=== PATIENT | female | born 1965 | race Caucasian/White ===

== ENCOUNTER 2018-08-04 07:12 | Emergency (ER) | payer OTHER ==
[2018-08-04 08:22] VITALS: TEMP 99.6
--- NOTE | 2018-08-04 08:26 | ED.PDOC ---
History of Present Illness - General Chief Complaint: Problem Stated Complaint: Pt complains of UTI like symptoms Time Seen by Provider: 08/04/18 07:58 Source: patient Exam Limitations: no limitations - History of Present Illness Initial Comments: Patient presents with dysuria since last night. She also has had frequency. She says she feels pain over her bladder that radiates to her right back. The bladder pain and dysuria are typical for her when she has a UTI but the back pain does not happen every time. It is sharp in nature and constant. No exacerbating nor alleviating factors. She has had a URI that she describes as "head congestion" for about 5 days. This has included a cough that is occasionally productive of yellow sputum. No other complaints. Timing/Duration: other - 12 hours Severity: moderate Improving Factors: nothing Worsening Factors: nothing Associated Symptoms: other - as in HPI Allergies/Adverse Reactions: Allergies NO KNOWN ALLERGY Allergy (Verified 08/04/18 07:42) Home Medications: Ambulatory Orders Desogestrel-Ethinyl Estradiol [Azurette] 1 tab PO DAILY 02/23/14 Iron [Mykidz Iron 10] 15 mg PO MALA-OTH-DAY 02/23/14 Multiple Vitamins W/ Minerals [Multi Vitamin/Minerals Fu] 1 tab PO DAILY 02/23/14 [place]-3 Fatty Acids [Fish Oil] 1,000 mg PO DAILY 02/23/14 Calcium Carbonate-Vitamin D [Calcium 500+D] 1 tab PO DAILY 02/01/16 Ciprofloxacin [Cipro] 500 mg PO BID #14 tab 08/04/18 Fluconazole [Diflucan Tab] 150 mg PO WKLY #2 tab 08/04/18 Review of Systems - Review of Systems Constitutional: States: no symptoms reported EENTM: States: see HPI Respiratory: States: see HPI Cardiology: States: no symptoms reported Gastrointestinal/Abdominal: States: no symptoms reported Genitourinary: States: see HPI Musculoskeletal: States: no symptoms reported Skin: States: no symptoms reported Neurological: States: no symptoms reported Endocrine: States: no symptoms reported Hematologic/Lymphatic: States: no symptoms reported Past Medical History (General) - Patient Medical History Hx Stroke: No Hx of COPD: No Hx Congestive Heart Failure: No Hx Diabetes: No Surgical History: tonsillectomy - Vaccination History Hx Tetanus, Diphtheria Vaccination: No Hx Influenza Vaccination: No Hx Pneumococcal Vaccination: No Immunizations Up to Date: Yes - Social History Hx Tobacco Use: No Hx Alcohol Use: No Hx Substance Use: No Hx Depression: No - Female History Patient is a Female of Child Bearing Age (10 -59 yrs old): Yes Family Medical History - Family History Father Family History: Unknown Living Status: Unknown Hx Cardiac Disease: Yes Hx Family Diabetes: Yes Physical Exam - Physical Exam General Appearance: Alert Eye Exam: bilateral normal Ears, Nose, Throat: normal ENT inspection Neck: non-tender, full range of motion, supple Respiratory: lungs clear, normal breath sounds Cardiovascular/Chest: normal peripheral pulses, regular rate, rhythm Gastrointestinal/Abdominal: normal bowel sounds, non tender, soft Back Exam: normal inspection, no CVA tenderness Skin Exam: normal color Lymphatic: no adenopathy Progress - Progress Progress: 08/04/18 08:40 Laboratory Tests 08/04/18 08/04/18 08/04/18 07:35 08:12 08:12 WBC 13.9 H RBC 4.31 Hgb 13.1 Hct 39.5 MCV 91.5 MCH 30.4 MCHC 33.2 RDW 13.1 Plt Count 233 MPV 8.3 Absolute Neuts (auto) 10.20 H Absolute Lymphs (auto) 2.40 Absolute Monos (auto) 1.00 H Absolute Eos (auto) 0.10 Absolute Basos (auto) 0.10 Neutrophils % 73.4 Lymphocytes % 17.7 L Monocytes % 7.0 Eosinophils % 1.1 Basophils % 0.8 Sodium 138 Potassium 4.2 Chloride 107 Carbon Dioxide 22 Anion Gap 13.2 BUN 12 Creatinine 1.04 BUN/Creatinine Ratio 11.5 Random Glucose 110 H Serum Osmolality 276.1 Calcium 8.5 Total Bilirubin 0.5 AST 14 ALT 12 Alkaline Phosphatase 34 L Serum Total Protein 6.9 Albumin 3.5 Globulin 3.4 Albumin/Globulin Ratio 1.0 L Urine Color [place] H Urine Appearance Cloudy Urine pH 5.0 Ur Specific [place] 1.020 Urine Protein 100 H Urine Glucose (UA) 100 H Urine Ketones Trace Urine Blood Moderate H Urine Nitrite Positive H Urine Bilirubin Negative Urine Urobilinogen 1.0 Ur Leukocyte Esterase Small H Urine RBC 40-50 H Urine WBC >100 H Ur Epithelial Cells 5-10 Urine Bacteria 2+ H Urine Yeast 1+ budding H Mildly elevated wbc. Unclear if this is from her URI or if she is developing pyelonephritis. Will treat with ciprofloxacin 500 mg po bid x 7 days for therapeutic advantage. There also appears to be a yeast infection. Diflucan 150 mg po once, then repeat in 7 days. Care instructions given. E.R. warnings given. Questions were elicited and answered. The patient voiced understanding and agreement with the plan. Departure - Departure Clinical Impression: Pyelonephritis, Yeast infection Disposition: Discharge to Home or Self Care Condition: Good Departure Forms: ED Discharge - Pt. Copy, Patient Portal Self Enrollment Instructions: DI for Urinary Tract Infection (UTI), DI for Kidney Infection, Vaginal Yeast Infection (DC) Diet: resume usual diet, other - Increase oral fluids. Activity: increase activity as tolerated Referrals: Tk aZragoza MD [Primary Care Provider] - 1-2 Weeks Prescriptions: Ciprofloxacin [Cipro] 500 mg PO BID #14 tab Fluconazole [Diflucan Tab] 150 mg PO WKLY #2 tab Home Medications: Ambulatory Orders Desogestrel-Ethinyl Estradiol [Azurette] 1 tab PO DAILY 02/23/14 Iron [Mykidz Iron 10] 15 mg PO MALA-OTH-DAY 02/23/14 Multiple Vitamins W/ Minerals [Multi Vitamin/Minerals Fu] 1 tab PO DAILY 02/23/14 [place]-3 Fatty Acids [Fish Oil] 1,000 mg PO DAILY 02/23/14 Calcium Carbonate-Vitamin D [Calcium 500+D] 1 tab PO DAILY 02/01/16 Ciprofloxacin [Cipro] 500 mg PO BID #14 tab 08/04/18 Fluconazole [Diflucan Tab] 150 mg PO WKLY #2 tab 08/04/18 Additional Instructions: Take medications as directed. Topical Monistat for yeast infection. Increase oral fluids. Return to the E.R. for worsening pain or fever greater than 100.3. Follow up with your primary care physician in one week if symptoms have not resolved.
[2018-08-04 08:35] VITALS: BP 120/75
[2018-08-04 09:03] VITALS: O2SAT 96
== END 2018-08-04 08:59 | disposition home or self-care (01) ==
LOC: ER 07:12
DX: N12 Tubulo-interstitial nephritis, not specified as acute or chronic (principal); B37.3 Candidiasis of vulva and vagina; R05 Cough; Z87.440 Personal history of urinary (tract) infections

== ENCOUNTER → 2020-04-06 | Outpatient (CLI) | payer SELFPAY ==
--- NOTE | 2020-04-06 16:52 | CT ---
EXAM DESCRIPTION: CTA Chest CLINICAL HISTORY: 54 years Female, PRECORDIAL PAIN TECHNIQUE: Volumetric CT angiographic data acquisition of the thorax was obtained. Standard axial and CT angiographic MIP sagittal and coronal images are submitted. This exam was performed according to our departmental dose-optimization program, which includes automated exposure control, adjustment of the mA and/or kV according to patient size and/or use of iterative reconstruction technique. COMPARISON: None available FINDINGS: The thyroid gland is unremarkable. No axillary adenopathy. Normal caliber thoracic aorta. No pericardial effusion. No evidence of acute process in the visualized upper abdomen. No mediastinal adenopathy. Bilateral segmental and subsegmental pulmonary emboli in both lungs. No evidence of right heart strain. No pneumothorax. No pleural effusion. No focal consolidation. No suspicious pulmonary nodule. No acute or suspicious osseous abnormality. Scattered degenerative changes present. IMPRESSION: Acute bilateral segmental and subsegmental pulmonary emboli. No evidence of right heart strain. Findings relayed to the ordering clinician's office at 4:49 PM 04/06/2020 Electronically signed by: Noé Dietrich MD 04/06/2020 4:50 PM CDT
== END ==
LOC: LAB.O 14:38
PROVIDERS: ATTEND Family Medicine
DX: R05 Cough (principal); R07.2 Precordial pain; E78.1 Pure hyperglyceridemia; I26.99 Other pulmonary embolism without acute cor pulmonale

== ENCOUNTER → 2020-04-07 | Outpatient (CLI) | payer OTHER, SELFPAY ==
--- NOTE | 2020-04-07 11:15 | US ---
EXAM DESCRIPTION: Venous,Lower Extremity RT: ULTRASOUND. CLINICAL HISTORY: PAIN IN RIGHT LOWER LEG bilateral acute pulmonary embolus on CTA of the chest on April 06. COMPARISON: None Available. TECHNIQUE: Howe-scale and doppler sonographic evaluation of the deep venous system of the right lower extremity. FINDINGS: Doppler evaluation shows decreased Doppler color flow and lack of augmentation and phasicity in the right posterior tibial vein, right peroneal vein, and right popliteal vein. On grayscale imaging, increased echogenicity in the veins and lack of compression. Normal color flow and normal phasicity and augmentation of the right common femoral vein, right femoral vein, right greater saphenous vein, junction with the CFV. These lower extremity deep veins were completely compressible; normal occlusion with transducer pressure. Howe-scale survey showed no echogenic thrombus within these veins. IMPRESSION: 1. Duplex ultrasound evaluation of the right lower extremity deep venous system showing thrombosis of the right popliteal vein, right peroneal vein, and in the right posterior tibial veins.. 2. Remaining deep veins of the right lower extremity are unremarkable. CRITICAL COMMUNICATION: The critical value was communicated directly by the side framer, Ms. Jennifer Escalante RDMS, (V) via phone call, with Dr. Bharat Zaragoza, at approximately 1153 hours, on April 07, 2020. Electronically signed by: Jose Proctor MD 04/07/2020 11:14 AM CDT
== END ==
LOC: US 09:03
PROVIDERS: ATTEND Family Medicine
DX: I82.431 Acute embolism and thrombosis of right popliteal vein (principal); I82.451 Acute embolism and thrombosis of right peroneal vein; I82.441 Acute embolism and thrombosis of right tibial vein